=== PATIENT | female | born 1970 | race Caucasian/White ===

== ENCOUNTER 2018-01-19 19:56 | Emergency (ER) | payer OTHER ==
[2018-01-19] MEDS: HYDROCODONE/APAP (5/325) TAB PO (21:11)
[2018-01-19] MEDS: KETOROLAC 60 MG INJ IM (21:16)
== END 2018-01-19 22:59 | disposition home or self-care (01) ==
LOC: FTE 19:56
DX: M79.604 Pain in right leg (principal); F17.210 Nicotine dependence, cigarettes, uncomplicated
CPT/HCPCS: 73510; 96372; 99284-25